=== PATIENT | male | born 1975 | race Caucasian/White ===

== ENCOUNTER 2018-04-14 13:44 | Emergency (ER) | payer OTHER ==
[2018-04-14] MEDS: CEPHALEXIN 500 MG CAP PO (15:27)
[2018-04-14] MEDS: DIPHTH/TET/ACEL PERTUSS (ADULT) 0.5 ML VIAL IM* (15:27)
[2018-04-14] MEDS: LIDOCAINE 2% (MDV) 20 ML INJ INJ (15:27)
== END 2018-04-14 17:04 | disposition home or self-care (01) ==
LOC: FTE 13:44
DX: S61.311A Laceration without foreign body of left index finger with damage to nail, initial encounter (principal); W27.0XXA Contact with workbench tool, initial encounter; Y92.9 Unspecified place or not applicable; Z23 Encounter for immunization
CPT/HCPCS: 64450; 73140; 90471; 90715; 99283-25